=== PATIENT | female | born 1940 | race Caucasian/White ===

== ENCOUNTER 2019-11-12 18:55 | Emergency (ER) | payer MEDICARE ==
[2019-11-12 19:51] LABS: #Basophils 0.1 thou/uL (0.0-0.2); #Lymphocytes 2.1 thou/uL (1.20-3.40); #Monocytes 0.4 thou/uL (0.11-0.59); #Neutrophils 5.2 thou/uL (1.40-6.50); %Basophils 1.4 % (0.0-1.0); %Eosinophils 0.5 % (0.0-10.0); %Neutrophils 66.1 % (42.0-75.0); Hemoglobin 12.6 g/dL (12.0-16.0); Mean Corpuscular HGB CONC 30.9 g/dL (32.0-36.0); Mean Corpuscular Hemoglobin 30.8 pg (27.0-31.0); Mean Corpuscular Volume 99.7 fL (78.0-98.0); Mean Platelet Volume 8.8 fL (7.4-10.4); Platelet Count 238 thou/uL (130-400); RBC Distribution Width 11.2 % (11.5-14.5); White Blood Cell (WBC) Count 7.8 thou/uL (4.8-10.8)
[2019-11-12 20:03] LABS: Bilirubin Negative (Negative); Blood, Urine Negative (Negative); Clarity Turbid (Clear); Glucose, Urine (Dipstick) Negative (Negative); Ketone, Urine 15 mg/dL (Negative); Leukocyte Negative (Negative); Nitrite Negative (Negative); Protein, Urine (Dipstick) 30 mg/dL (Neg-Trace); Urobilinogen 0.2 mg/dL (Less than 2); pH, Urine 8.5 (5.0-9.0)
[2019-11-12] MEDS ORDERED: Ondansetron ODT 4 MG TAB ONE (20:04)
[2019-11-12] MEDS ORDERED: Pantoprazole 40 MG VIAL ONE (20:06)
[2019-11-12] MEDS ORDERED: Mag-Al Plus 1200 MG/1200 MG/120 MG/30 ML UDCUP ONE (20:06)
[2019-11-12] MEDS ORDERED: Lidocaine Viscous Sol 2% 15 ml UD Cup ONE (20:06)
[2019-11-12 20:08] LABS: ALT (SGPT) 15 U/L (8-55); AST (SGOT) 21 U/L (5-34); Albumin 4.5 g/dL (3.4-4.8); Alkaline Phosphatase 79 U/L (40-110); Anion Gap 17 mmol/L (10-20); BUN (Urea Nitrogen) 19 mg/dL (9.8-20.1); Bilirubin, Total 0.5 mg/dL (0.2-1.2); Calc. Creatinine Clearance 0 mL/min (70-130); Calcium 10.2 mg/dL (7.8-10.44); Carbon Dioxide 26 mmol/L (23-31); Chloride 101 mmol/L (98-107); Estimated GFR-MDRD 60; Globulin 2.7 g/dL (2.4-3.5); Glucose 123 mg/dL (83-110); Lipase 22 U/L (8-78); Protein, Total 7.2 g/dL (6.0-8.3); Sodium 140 mmol/L (136-145)
[2019-11-12 20:10] LABS: RBC/HPF None Seen HPF (0-3); Squamous Epithelial 0-3 HPF (0-3); WBC/HPF 0-3 HPF (0-3)
[2019-11-12] MEDS ORDERED: Ondansetron PF 4 MG/2 ML Vial ONE (20:10)
[2019-11-12 20:11] LABS: Bacteria/HPF Rare-Few HPF (None Seen); Renal Epithelial 0-3 HPF (None Seen)
[2019-11-12 20:25] LABS: CKMB 2.7 ng/mL (0-6.6)
[2019-11-12] MEDS ORDERED: Metoprolol Tartrate 5 MG/5 ML VIAL ONE (20:27)
[2019-11-12] MEDS ORDERED: Nitroglycerin 0.4 MG TAB 1 EACH ONE (20:27)
[2019-11-12] MEDS ORDERED: Aspirin Chewable 81 MG TAB ONE (20:27)
--- NOTE | 2019-11-13 06:34 | RAD ---
PORTABLE CHEST: 11/12/19 COMPARISON: No prior films are available for comparison. FINDINGS: The heart is normal in size. There is no vascular congestion, edema or pleural effusion. Minor promin ence of some of the interstitial lung markings is most likely chronic. Scoliosis is noted in the thor acic region, convex right. IMPRESSION: No acute thoracic findings. POS: HOME
== END 2019-11-12 21:12 | disposition short-term general hospital (02) ==
LOC: BURERS 18:58
DX: I24.9 Acute ischemic heart disease, unspecified (principal); I10 Essential (primary) hypertension; E78.5 Hyperlipidemia, unspecified; F41.9 Anxiety disorder, unspecified; R11.2 Nausea with vomiting, unspecified; Z79.899 Other long term (current) drug therapy
CPT/HCPCS: 71045; 80053; 81003; 81015; 82553; 83605; 83690; 84484; 85025; 93005; 94760; 96374; 96375; C9113; J2405; Q0162

== ENCOUNTER 2020-11-22 17:37 | Emergency (ER) | payer MEDICARE ==
[2020-11-22 18:18] LABS: #Basophils 0.1 thou/uL (0.0-0.2); #Eosinphils 0.1 thou/uL (0.0-0.7); #Lymphocytes 3.2 thou/uL (1.20-3.40); #Monocytes 0.4 thou/uL (0.11-0.59); #Neutrophils 2.9 thou/uL (1.40-6.50); %Basophils 1.3 % (0.0-1.0); %Eosinophils 1.7 % (0.0-10.0); %Monocytes 6.6 % (0.0-10.0); %Neutrophils 43.3 % (42.0-75.0); Hemoglobin 11.7 g/dL (12.0-16.0); Mean Corpuscular HGB CONC 32.3 g/dL (32.0-36.0); Mean Corpuscular Hemoglobin 31.2 pg (27.0-31.0); Mean Corpuscular Volume 96.9 fL (78.0-98.0); Platelet Count 248 thou/uL (130-400); RBC Distribution Width 11.4 % (11.5-14.5); Red Blood Cell (RBC) Count 3.76 mill/uL (4.20-5.40); White Blood Cell (WBC) Count 6.7 thou/uL (4.8-10.8)
[2020-11-22 18:36] LABS: ALT (SGPT) 19 U/L (8-55); AST (SGOT) 20 U/L (5-34); Alkaline Phosphatase 79 U/L (40-110); Anion Gap 15 mmol/L (10-20); BUN (Urea Nitrogen) 21 mg/dL (9.8-20.1); Bilirubin, Total 0.6 mg/dL (0.2-1.2); Calc. Creatinine Clearance 0 mL/min (70-130); Calcium 9.6 mg/dL (7.8-10.44); Carbon Dioxide 24 mmol/L (23-31); Chloride 104 mmol/L (98-107); Globulin 3.1 g/dL (2.4-3.5); Glucose 96 mg/dL (83-110); Lipase 88 U/L (8-78); Potassium 4.2 mmol/L (3.5-5.1); Protein, Total 7.1 g/dL (5.8-8.1); Sodium 139 mmol/L (136-145)
[2020-11-22 21:00] LABS: SARS-CoV-2 NAA Rapid Test Not Detected (NotDetected)
== END 2020-11-22 22:07 | disposition short-term general hospital (02) ==
LOC: BURERS 17:37
DX: I49.9 Cardiac arrhythmia, unspecified (principal); Z20.822 Contact with and (suspected) exposure to COVID-19; Z79.899 Other long term (current) drug therapy; Z79.82 Long term (current) use of aspirin; I10 Essential (primary) hypertension; E78.5 Hyperlipidemia, unspecified
CPT/HCPCS: 71045; 80053; 83605; 83690; 83880; 84484; 85025; 93005; U0002; 36415

== ENCOUNTER 2021-09-30 11:02 | Emergency (ER) | payer MEDICARE ==
[2021-09-30 11:52] LABS: #Monocytes 0.2 thou/uL (0.11-0.59); #Neutrophils 7.3 thou/uL (1.40-6.50); %Basophils 0.6 % (0.0-1.0); %Lymphocytes 11.5 % (21.0-51.0); %Monocytes 2.6 % (0.0-10.0); %Neutrophils 85.3 % (42.0-75.0); Hemoglobin 13.6 g/dL (12.0-16.0); Mean Corpuscular HGB CONC 33.6 g/dL (32.0-36.0); Mean Corpuscular Hemoglobin 31.3 pg (27.0-31.0); Mean Corpuscular Volume 93.4 fL (78.0-98.0); Mean Platelet Volume 8.5 fL (7.4-10.4); Platelet Count 226 thou/uL (130-400); RBC Distribution Width 11.4 % (11.5-14.5); Red Blood Cell (RBC) Count 4.33 mill/uL (4.20-5.40); White Blood Cell (WBC) Count 8.5 thou/uL (4.8-10.8)
[2021-09-30] MEDS ORDERED: Promethazine HCl 25 MG/ML VIAL ONE (11:55)
[2021-09-30] MEDS ORDERED: Enoxaparin Sodium 100 MG/ML SYRINGE ONE (13:17)
[2021-09-30] MEDS ORDERED: Aspirin Chewable 81 MG TAB ONE (13:17)
[2021-09-30 13:24] LABS: CKMB 14.1 ng/mL (0-6.6); Critical Call CKMB 0
[2021-09-30 13:41] LABS: ALT (SGPT) 23 U/L (8-55); AST (SGOT) 34 U/L (5-34); Albumin 4.5 g/dL (3.4-4.8); Alkaline Phosphatase 107 U/L (40-110); Anion Gap 21 mmol/L (10-20); BUN (Urea Nitrogen) 17 mg/dL (9.8-20.1); Bilirubin, Total 0.9 mg/dL (0.2-1.2); Calc. Creatinine Clearance 0 mL/min (70-130); Calcium 9.9 mg/dL (7.8-10.44); Carbon Dioxide 22 mmol/L (23-31); Chloride 99 mmol/L (98-107); Estimated GFR 71; Glucose 133 mg/dL (83-110); Lipase 22 U/L (8-78); Potassium 4.1 mmol/L (3.5-5.1); Protein, Total 7.5 g/dL (5.8-8.1); Sodium 138 mmol/L (136-145)
== END 2021-09-30 15:50 | disposition short-term general hospital (02) ==
LOC: BURERS 11:02
DX: I21.4 Non-ST elevation (NSTEMI) myocardial infarction (principal); I10 Essential (primary) hypertension; E78.5 Hyperlipidemia, unspecified; Z79.82 Long term (current) use of aspirin; Z79.899 Other long term (current) drug therapy
CPT/HCPCS: 80053; 82553; 83605; 83690; 83880; 84484; 85025; 93005; 96361; 96372; 96374; J1650; J2550

== ENCOUNTER 2023-11-27 11:19 | Emergency (ER) | payer MEDICARE, OTHER ==
[2023-11-27] MEDS ORDERED: Ondansetron PF 4 MG/2 ML Vial ONE (11:37)
[2023-11-27 11:47] LABS: #Lymphocytes 0.7 thou/uL (1.20-3.40); #Monocytes 0.1 thou/uL (0.11-0.59); #Neutrophils 8.2 thou/uL (1.40-6.50); %Basophils 0.4 % (0.0-1.0); %Lymphocytes 7.3 % (21.0-51.0); %Monocytes 1.4 % (0.0-10.0); %Neutrophils 90.9 % (42.0-75.0); Hematocrit 46.3 % (36.0-47.0); Hemoglobin 15.3 g/dL (12.0-16.0); Mean Corpuscular Volume 91.1 fl (78.0-98.0); Mean Platelet Volume 8.5 fL (7.4-10.4); Platelet Count 277 10x3/uL (130-400); RBC Distribution Width 10.1 % (11.5-14.5); Red Blood Cell (RBC) Count 5.09 mill/uL (4.20-5.40)
[2023-11-27 12:05] LABS: ALT (SGPT) 16 U/L (8-55); AST (SGOT) 23 U/L (5-34); Albumin 4.4 g/dL (3.4-4.8); Alkaline Phosphatase 108 U/L (40-110); Anion Gap 22 mmol/L (10-20); BUN (Urea Nitrogen) 31 mg/dL (9.8-20.1); Bilirubin, Total 0.7 mg/dL (0.2-1.2); Calc. Creatinine Clearance 0 mL/min (70-130); Calcium 10.2 mg/dL (7.8-10.44); Carbon Dioxide 23 mmol/L (23-31); Chloride 96 mmol/L (98-107); Estimated GFR 48; Globulin 3.8 g/dL (2.4-3.5); Glucose 172 mg/dL (83-110); Potassium 3.3 mmol/L (3.5-5.1); Protein, Total 8.2 g/dL (5.8-8.1); Sodium 138 mmol/L (136-145)
[2023-11-27 12:06] LABS: Troponin I 0.022 ng/mL (< 0.028)
== END 2023-11-27 12:33 | disposition home or self-care (01) ==
LOC: BURERS 11:19
DX: R11.2 Nausea with vomiting, unspecified (principal); I10 Essential (primary) hypertension; E78.5 Hyperlipidemia, unspecified; E87.6 Hypokalemia; R73.9 Hyperglycemia, unspecified; R79.89 Other specified abnormal findings of blood chemistry; Z79.899 Other long term (current) drug therapy
CPT/HCPCS: 71045; 80053; 83880; 84484; 85025; 93005; 94760; 96374; J2405